=== PATIENT | female | born 1980 | race African-American/Black ===

== ENCOUNTER 2016-08-06 18:11 | Emergency (ER) | payer BC, OTHER ==
[~2016-08-06] VITALS: Ht 167.6 cm; Wt 108.6 kg
[~2016-08-06 18:11] MED LIST: IBUP-1451 PO; LEVO-366 PO; WLLSR150 PO
[2016-08-06 18:15] VITALS: Ht 167.6 cm; Wt 108.6 kg
[2016-08-06] MEDS ORDERED: HYDR-5688 PO (18:47)
[2016-08-06 18:53] VITALS: BP 130/86; PULSE 84; TEMP 36.7; O2SAT 100
--- NOTE | 2016-08-08 00:13 | EMERGENCY ROOM VISIT NOTE ---
ED Visit Note First contact with patient: 18:19 Chief Complaint: Back pain. History of Present Illness: Ms. Palmer is a 36-year-old white female who ambulates into the ED complaining of lumbar back pain. Historically patient reports she has chronic back pain that has been controlled for multiple years. Patient reports approximately 2 weeks ago she started experiencing lumbar back pain again. Initially was mild and has gradually increased in intensity. Currently she places her discomfort over the L5-S1 area with prominence on the left. She describes her pain as a sharp sensation. She rates her discomfort 8/ 10. She denies radiation of pain but does report she has paresthesias that radiate down the posterior aspect of the left leg and stops in the mid calf area. Her pain worsens with all movement of the lumbar back and palpation. She has not identified any alleviating factors related to the pain. She reports she's been using [id number] medications without relief of her discomfort. She denies fevers, chills, sweats, history of cancer, history of IV drug abuse, upper back pain, chest pain, shortness of breath, abdominal pain, nausea, vomiting, diarrhea, constipation, rectal bleeding, black/tarry stools, urinary symptoms, hematuria, vaginal bleeding, vaginal discharge, bowel and bladder dysfunction, genital paresthesias, lower extremity weakness. Review of Systems: As noted above in history of present illness. All body systems were reviewed and found to be negative as noted above. Past Medical History: As previously noted, asthma, status post tubal ligation and cholecystectomy. Current Medications: Ibuprofen. Allergies to Medications: Patient denies. Social History: Patient is currently employed; she feels safe in her home environment; she admits to tobacco use and denies alcohol use. Physical Examination: Vital Signs: Date Time Temp Pulse Resp B/P Pulse Ox O2 Delivery O2 Flow Rate FiO2 08/06/16 18:53 36.7 84 18 130/86 100 08/06/16 18:15 36.7 86 18 133/94 99 Room Air GENERAL: 36-year-old female in mild distress due to pain, nontoxic-appearing, afebrile and hemodynamically stable. NEUROLOGICAL: Awake, alert and oriented to person, place and time. Answering questions appropriately and following commands. Normal gait. Good hand eye coordination. No focal motor sensory deficits. SKIN: Warm, dry and pink. No soft tissue eruptions or trauma noted. HEENT: Atraumatic and normocephalic. BACK: No tenderness over the bony cervical and thoracic spine. No CVA tenderness. Moderate tenderness just left lateral to the L4 S1 area and into the sacroiliac joint. Do not appreciate any bony deformity, bony crepitus, step -offs, erythema or edema. Decreased range of motion in all movements at the waist due to pain. Negative straight leg raise test. THORAX: Lungs sounds are clear to auscultation and equal bilaterally with symmetrical chest wall. ABDOMEN: Flat, soft and nontender. Positive bowel sounds in all quadrants. No guarding, rigidity or organomegaly. EXTREMITIES: Moves all extremities well on command and with purpose. All distal neurovascular statuses are intact and equal bilaterally. Lower Extremities: 5/5 muscle strength in all movements of the hips, knees and ankles. 2+ dorsalis pedis and anterior tibialis pulses. Able to distinguish light sensations through all dermatomes of the leg. ED Course: Patient is assessed as noted above. Patient was educated about tonight's findings and instructed on her treatment plan; she verbalizes understanding and agreement with this plan. Clinical Impression: Acute on chronic lumbar back pain. Disposition: Patient discharged home in stable condition; prior to departure she was reassessed and subjectively reported she was feeling better and rated her discomfort 4/10. Plan: Comfort measures were discussed with the patient including rest, ice and a sliding pain medication scale of ibuprofen, acetaminophen and [place]; she was given appropriate precautions with narcotic use. Patient was encouraged to follow-up with family physician for recheck in 3-5 days and any needs for referral to back specialist. Patient was encouraged return the ED for worsening pain, fevers, leg weakness, rectal/genital paresthesias, bowel and bladder dysfunction or any new/ concerning symptoms.
[2016-12-04] MEDS ORDERED: DOXY-300 PO (13:07)
== END 2016-08-06 18:54 | disposition home or self-care (01) ==
LOC: C.EDB 18:13 → C.EDD 18:54
DX: M54.5 Low back pain (principal); J45.909 Unspecified asthma, uncomplicated

== ENCOUNTER 2016-12-03 03:15 | Inpatient (IN) | payer OTHER ==
[~2016-12-03] VITALS: Ht 170.2 cm; Wt 109.2 kg
[~2016-12-03 03:15] MED LIST changes: +HYDR-5688 PO; -LEVO-366 PO; -WLLSR150 PO
[2016-12-03] MEDS ORDERED: MoRPHine SULFATE 4 MG/ML 1 ML CARP\\VIAL IV STA (03:34)
[2016-12-03] MEDS ORDERED: ONDANSETRON INJ 2 MG/ML 2 ML VIAL IV STA (03:34)
[2016-12-03] MEDS ORDERED: SODIUM CHLORIDE 0.9% 1000ML 1,000 ML IV STA (03:34)
[2016-12-03] MEDS ORDERED: OPTIRAY 320 IV PRN (03:45)
[2016-12-03 03:48] LABS: MEAN CORPUSCULAR HEMOGLOBIN 25.5 pg (25-34); MEAN CORPUSCULAR HGB CONC 33.6 g/dl (32-36); MEAN PLATELET VOLUME 9.8 fL (7.4-10.4); PLATELET COUNT 343 K/uL (130-400); RED BLOOD COUNT 5.13 M/uL (4.2-5.4); WHITE BLOOD COUNT 25.38 K/uL (4.8-10.8)
--- NOTE | 2016-12-03 03:55 | EMERGENCY ROOM VISIT NOTE ---
History Report prepared by Jonathan: Katarina Farias Under the Supervision of: Dr. Kemar Clark D.O. First contact with patient: 03:30 Chief Complaint: BACK PAIN Stated Complaint: SEVERE BACKACHE History of Present Illness The patient is a 36 year old female who presents to the Emergency Room with complaints of an episode of back pain starting two hours ago. 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 She states that she has never had this before. She reports that she took Gabapentin and Ibuprofen with no relief. The patient complains of shortness of breath and a cough. The patient denies production of a substance with the cough, history of blood clots, history of pneumonia, leg pain, use of street drugs, and issues with her lungs in the past. The patient notes she is a smoker. She currently rates her pain as a 10/10 in severity. Source of History: patient Onset: two hours ago Position: back Symptom Intensity: 10/10 Timing: other (episode) Associated Symptoms: + cough, + SOB Note: The patient denies production of a substance with the cough and leg pain. Review of Systems See HPI for pertinent positives and negatives. A total of ten systems were reviewed and were otherwise negative. Past Medical & Surgical Medical Problems: (1) Asthma, Unspecified (2) Cholelithiasis Nos (3) Lumbago (4) Tobacco Use Disorder Surgical Problems: (1) History of cholecystectomy (2) History of tubal ligation Family History Patient reports no known family medical history. Social History Smoking Status: Current Every Day Smoker Alcohol Use: none Drug Use: none Marital Status: single Housing Status: lives with family Occupation Status: employed Current/Historical Medications Scheduled PRN Ibuprofen Tab (Motrin), 800 MG PO Q6H PRN for Pain Allergies Coded Allergies: No Known Allergies (Verified , 12/03/16) Physical Exam Vital Signs Date Time Temp Pulse Resp B/P (MAP) Pulse Ox O2 Delivery O2 Flow Rate FiO2 12/03/16 04:24 110 20 150/91 93 Room Air 12/03/16 03:33 93 Room Air 12/03/16 03:33 120 12/03/16 03:23 36.9 125 28 141/89 92 Room Air Physical Exam GENERAL: Awake, alert, well-appearing, in no distress HENT: Normocephalic, atraumatic. Oropharynx unremarkable. EYES: Normal conjunctiva. Sclera non-icteric. NECK: Supple. No nuchal rigidity. FROM. No JVD. RESPIRATORY: Clear to auscultation. CARDIAC: Tachycardic rate, normal rhythm. Extremities warm and well perfused. Pulses equal. ABDOMEN: Soft, non-distended. No tenderness to palpation. No rebound or guarding. No masses. RECTAL: Deferred. MUSCULOSKELETAL: Chest examination reveals no tenderness. Back has mild paraspinal tenderness in thoracic spine. The back is symmetrical on inspection without obvious abnormality or deformity. There is no CVA tenderness to palpation. No joint edema. LOWER EXTREMITIES: Calves are equal size bilaterally and non-tender. No edema. No discoloration. NEURO: Normal sensorium. No sensory or motor deficits noted. SKIN: No rash or jaundice noted. Medical Decision & Procedures ER Provider Diagnostic Interpretation: CHEST X-RAY: Findings: The results were interpreted by me. It shows increased pulmonary markings bilaterally. Concerned for pulmonary edema. CT CHEST With Contrast: Findings: Comparison 02/19/16 There is significant artifact on this examination. Given the degree of artifact, do not feel this exam is sufficient to exclude pulmonary embolism. No large central/saddle embolus. Bilateral opacity suspicious for infiltrate. More prominent than the previous. Radiologist: Adrien Guajardo M.D. Study ready at 04:30 and initial results transmitted at 05:09. Laboratory Results 12/03/16 03:35 Red Blood Count 5.13, Mean Corpuscular Volume 76.0, Mean Corpuscular Hemoglobin 25.5, Mean Corpuscular Hemoglobin Concent 33.6, Mean Platelet Volume 9.8, Neutrophils (%) (Auto) 89.6, Lymphocytes (%) (Auto) 3.7, Monocytes (%) (Auto) 6.0, Eosinophils (%) (Auto) 0.1, Basophils (%) (Auto) 0.1, Neutrophils # (Auto) 22.72, Lymphocytes # (Auto) 0.95, Monocytes # (Auto) 1.53, Eosinophils # (Auto) 0.03, Basophils # (Auto) 0.02 12/03/16 03:35 Test 12/03/16 03:35 12/03/16 03:41 White Blood Count 25.38 K/uL (4.8-10.8) Red Blood Count 5.13 M/uL (4.2-5.4) Hemoglobin 13.1 g/dL (12.0-16.0) Hematocrit 39.0 % (37-47) Mean Corpuscular Volume 76.0 fL (80-100) Mean Corpuscular Hemoglobin 25.5 pg (25-34) Mean Corpuscular Hemoglobin Concent 33.6 g/dl (32-36) Platelet Count 343 K/uL (130-400) Mean Platelet Volume 9.8 fL (7.4-10.4) Neutrophils (%) (Auto) 89.6 % Lymphocytes (%) (Auto) 3.7 % Monocytes (%) (Auto) 6.0 % Eosinophils (%) (Auto) 0.1 % Basophils (%) (Auto) 0.1 % Neutrophils # (Auto) 22.72 K/uL (1.4-6.5) Lymphocytes # (Auto) 0.95 K/uL (1.2-3.4) Monocytes # (Auto) 1.53 K/uL (0.11-0.59) Eosinophils # (Auto) 0.03 K/uL (0-0.5) Basophils # (Auto) 0.02 K/uL (0-0.2) RDW Standard Deviation 39.9 fL (36.4-46.3) RDW Coefficient of Variation 14.2 % (11.5-14.5) Immature Granulocyte % (Auto) 0.5 % Immature Granulocyte # (Auto) 0.13 K/uL (0.00-0.02) Anion Gap 8.0 mmol/L (3-11) Est Creatinine Clear Calc Drug Dose 127.4 ml/min Estimated GFR () 114.3 Estimated GFR (Non- 98.6 BUN/Creatinine Ratio 11.2 (10-20) Calcium Level 9.3 mg/dl (8.5-10.1) Total Bilirubin 0.9 mg/dl (0.2-1) Direct Bilirubin 0.2 mg/dl (0-0.2) Aspartate Amino Transf (AST/SGOT) 21 U/L (15-37) Alanine Aminotransferase (ALT/SGPT) 27 U/L (12-78) Alkaline Phosphatase 79 U/L (45-117) Pro-B-Type Natriuretic Peptide 79 pg/ml (0-450) Total Protein 8.1 gm/dl (6.4-8.2) Albumin 3.8 gm/dl (3.4-5.0) Bedside Troponin I < 0.030 ng/ml (0-0.045) Laboratory results reviewed by me Medications Administered Medications (Trade) Dose Ordered Sig/Shawna Route Start Time Stop Time Status Last Admin Dose Admin Morphine Sulfate (MoRPHine SULFATE INJ) 4 mg NOW STAT IV 12/03/16 03:34 12/03/16 03:37 DC 12/03/16 03:46 4 MG Ondansetron HCl (Zofran Inj) 4 mg NOW STAT IV 12/03/16 03:34 12/03/16 03:37 DC 12/03/16 03:45 4 MG Sodium Chloride 1,000 ml @ 999 mls/hr Q1H1M STAT IV 12/03/16 03:34 12/03/16 04:34 DC 12/03/16 03:45 999 MLS/HR ECG Indication: back/shoulder pain Rate (beats per minute): 126 Rhythm: sinus tachycardia Findings: no acute ischemic change, other (normal intervals, normal axis) ED Course 0331: The patient was evaluated in room A3. A complete history and physical exam was performed. 0334: Ordered NSS 1000 ml @ 999 mls/hr IV, Zofran Inj 4 mg IV, Morphine Sulfate 4 mg IV. 0512: Ordered Rocephin Inj 1 gm IV. 0515: Ordered Azithromycin 500 mg/ Dextrose 255 ml @ 125 mls/hr IV. 0522: Discussed the patient's case with Dr. Nessa Perry. The patient will be evaluated for further treatment and disposition. Medical Decision Differential diagnoses include musculoskeletal back pain, pleurisy, pulmonary embolism, pneumonia. pleurisies. Patient was given IV pain medicine patient was started on IV Rocephin and Zithromax after the patient underwent a CT for pulmonary embolism due to the fact the patient was tachycardiac hypoxic and had back pain. Patient was fine have bilateral lower lobe infiltrates on CT patient's BNP was normal sinus do not suspect congestive heart failure. I discussed the case with the patient at bedside at 520 have discussed the case with the [facility] hospitalist 5:25 AM for admission Consults Time Called: [phone] Consulting Physician: Dr. Nessa Perry Returned Call: [phone] Discussed the patient's case with Dr. Nessa Perry. The patient will be evaluated for further treatment and disposition. Impression Primary Impression: Bilateral pneumonia Scribe Attestation The scribe's documentation has been prepared under my direction and personally reviewed by me in its entirety. I confirm that the note above accurately reflects all work, treatment, procedures, and medical decision making performed by me. Departure Information Dispostion Being Evaluated By Hospitalist Referrals No Doctor, Assigned (PCP) Patient Instructions [facility]
[2016-12-03 04:08] LABS: BUN/CREATININE RATIO 11.2 (10-20); CALCIUM 9.3 mg/dl (8.5-10.1); CREATININE 0.77 mg/dl (0.60-1.20); POTASSIUM 3.4 mmol/L (3.5-5.1)
[2016-12-03 04:27] LABS: BASO % 0.1 %; BASO ABS # 0.02 K/uL (0-0.2); COMPLETE YES; EOS % 0.1 %; IG% 0.5 %; LYMPH % 3.7 %; LYMPH ABS # 0.95 K/uL (1.2-3.4); NEUT % 89.6 %
[2016-12-03] MEDS ORDERED: CEFTRIAXONE SOD INJ 1 GM ADDVIAL IV STA (05:12)
[2016-12-03] MEDS ORDERED: AZITHROMYCIN IV 500 MG in DEXTROSE 5% 250ML 250 ML IV ONE (05:15)
[2016-12-03] MEDS ORDERED: ACETAMINOPHEN 325 MG TAB PO PRN (05:45)
--- NOTE | 2016-12-03 05:56 | DIAGNOSTIC IMAGING REPORT ---
(CHEST FOR PE) ANGIO WITH CT DOSE: 502.29 mGy.cm HISTORY: Chest pain dyspnea TECHNIQUE: 02/19/2016 A dose lowering technique was utilized adhering to the principles of ALARA. COMPARISON STUDY: 02/19/2016 FINDINGS: Limited study technically due to respiratory and somatic motion.. Central pulmonary vasculature shows no major filling defect. The second third vessels are not diagnostically evaluated. Parenchymal pattern suggests developing pulmonary edema versus diffuse bilateral parenchymal infiltrative change. Respiratory distress syndrome is also a consideration. IMPRESSION: 1. Near nondiagnostic study technically due to respiratory and somatic motion. 2. No evidence for major central embolus. 3. Nondiagnostic evaluation of the peripheral pulmonary arterial structures 4. Diffuse bilateral parenchymal infiltrative change versus pulmonary edema/respiratory distress. The above report was generated using voice recognition software. It may contain grammatical, syntax or spelling errors. Electronically signed by: Haim Juárez M.D. 12/03/2016 5:55 AM Dictated Date/Time: 12/03/2016 5:49 AM
[2016-12-03] MEDS ORDERED: NRN100 PO (05:57)
[2016-12-03] MEDS ORDERED: ACETAMINOPHEN 500 MG TAB PO PRN (06:00)
[2016-12-03] MEDS ORDERED: IBUPROFEN 800 MG TAB PO PRN (06:00)
--- NOTE | 2016-12-03 06:00 | History and Physical ---
History & Physical Date & Time of Service: Dec 03, 2016 at 06:00 . Chief Complaint: Severe Backache . Primary Care Physician: Bakari Beatty D.OBob . History of Present Illness Source: patient, clinic records, hospital records 36 YO female followed by Dr. Bakari Beatty for Family Medicine. History of mild asthma and other problems as noted below. Seen in ED for pneumonia in February 2016. Treated as an outpatient with improvement. 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 [place] well yesterday. Around midnight she noted interscapular pain. Pain was sharp, but not pleuritic. It did not radiate. No fever or cough initially. No no nausea or vomiting. Tried ibuprofen and gabapentin with minimal relief. Came to ED for evaluation. Received IV morphine with relief of the pain. CTA chest negative for PE, but demonstrated bilateral infiltrates. Developed nonproductive cough and some SOB while in the ED. . Past Medical/Surgical History Chronic and Resolved Medical Problems: (1) Asthma Status: Chronic (2) Sickle cell trait Status: Chronic Surgical Problems: (2) Status post cholecystectomy Status: Chronic (3) Status post tubal ligation Status: Chronic . Social History Smoking Status: Current Every Day Smoker Alcohol Use: none Drug Use: none Marital Status: single Housing status: lives with family Occupational Status: employed Multi-Drug Resistant Organisms History of MDRO: No Allergies Coded Allergies: No Known Allergies (Verified , 12/03/16) Home Medications Scheduled PRN Gabapentin (Gabapentin), 100 MG PO TID PRN for Pain Ibuprofen Tab (Motrin), 800 MG PO Q6H PRN for Pain Review of Systems As noted above in HPI. . Physical Exam Vital Signs Date Time Temp Pulse Resp B/P (MAP) Pulse Ox O2 Delivery O2 Flow Rate FiO2 12/03/16 05:38 99 22 152/107 92 Room Air 12/03/16 04:24 110 20 150/91 93 Room Air 12/03/16 03:33 93 Room Air 12/03/16 03:33 120 12/03/16 03:23 36.9 125 28 141/89 92 Room Air General Appearance: WD/WN, no apparent distress Head: normocephalic, atraumatic Eyes: normal inspection, PERRL, EOMI, sclerae normal ENT: normal ENT inspection, hearing grossly normal, pharynx normal Neck: supple, no adenopathy, thyroid normal, trachea midline Respiratory/Chest: lungs clear, no respiratory distress, no accessory muscle use Cardiovascular: regular rate, rhythm, no edema, no gallop, no JVD, no murmur, normal peripheral pulses Abdomen/GI: normal bowel sounds, non tender, soft, no organomegaly, no pulsatile mass Extremities/Musculoskelatal: no calf tenderness, no pedal edema 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7 % Monocytes (%) (Auto) 6.0 % Eosinophils (%) (Auto) 0.1 % Basophils (%) (Auto) 0.1 % Neutrophils # (Auto) 22.72 1.4-6.5 K/uL Lymphocytes # (Auto) 0.95 1.2-3.4 K/uL Monocytes # (Auto) 1.53 0.11-0.59 K/uL Eosinophils # (Auto) 0.03 0-0.5 K/uL Basophils # (Auto) 0.02 0-0.2 K/uL RDW Standard Deviation 39.9 36.4-46.3 fL RDW Coefficient of Variation 14.2 11.5-14.5 % Immature Granulocyte % (Auto) 0.5 % Immature Granulocyte # (Auto) 0.13 0.00-0.02 K/uL Sodium Level 139 136-145 mmol/L Potassium Level 3.4 3.5-5.1 mmol/L Chloride Level 108 98-107 mmol/L Carbon Dioxide Level 23 21-32 mmol/L Anion Gap 8.0 3-11 mmol/L Blood Urea Nitrogen 9 7-18 mg/dl Creatinine 0.77 0.60-1.20 mg/dl Est Creatinine Clear Calc Drug Dose 127.4 ml/min Estimated GFR () 114.3 Estimated GFR (Non- 98.6 BUN/Creatinine Ratio 11.2 10-20 Random Glucose 112 70-99 mg/dl Calcium Level 9.3 8.5-10.1 mg/dl Total Bilirubin 0.9 0.2-1 mg/dl Direct Bilirubin 0.2 0-0.2 mg/dl Aspartate Amino Transf (AST/SGOT) 21 15-37 U/L Alanine Aminotransferase (ALT/SGPT) 27 12-78 U/L Alkaline Phosphatase 79 45-117 U/L Pro-B-Type Natriuretic Peptide 79 0-450 pg/ml Total Protein 8.1 6.4-8.2 gm/dl Albumin 3.8 3.4-5.0 gm/dl Bedside Troponin I < 0.030 0-0.045 ng/ml Microbiology Results 12/03/16 Blood Culture, Received Pending 12/03/16 Blood Culture, Received Pending Diagnostic Radiology CHEST ONE VIEW PORTABLE FINDINGS: There are low lung volumes. The heart is normal in size. Bilateral perihilar hazy airspace opacities no pleural effusions. No pneumothorax. IMPRESSION: Bilateral perihilar hazy airspace opacities. This favors an atypical pneumonia versus noncardiogenic pulmonary edema. Electronically signed by: Gideon Bloom M.D. 12/03/2016 7:04 AM Dictated Date/Time: 12/03/2016 7:03 AM (CHEST FOR PE) ANGIO WITH FINDINGS: Limited study technically due to respiratory and somatic motion.. Central pulmonary vasculature shows no major filling defect. The second third vessels are not diagnostically evaluated. Parenchymal pattern suggests developing pulmonary edema versus diffuse bilateral parenchymal infiltrative change. Respiratory distress syndrome is also a consideration. IMPRESSION: 1. Near nondiagnostic study technically due to respiratory and somatic motion. 2. No evidence for major central embolus. 3. Nondiagnostic evaluation of the peripheral pulmonary arterial structures 4. Diffuse bilateral parenchymal infiltrative change versus pulmonary edema/respiratory distress. The above report was generated using voice recognition software. It may contain grammatical, syntax or spelling errors. Electronically signed by: Haim Juárez M.D. 12/03/2016 5:55 AM Dictated Date/Time: 12/03/2016 5:49 AM . EKG EKG performed at 03:[address] at 130 / minute, no acute ST or T-wave abnormalities. . Impression Assessment and Plan BACK PAIN No apparent PE or aortic dissection per CTA chest. EKG shows ST, no acute changes. Troponin negative. BILATERAL PULMONARY INFILTRATES CT demonstrates bilateral parenchymal infiltrates vs pulmonary edema. Pro-BNP normal. WBC = 25,000. Probable pneumonia. Blood cultures obtained in ED. Started on azithromycin and ceftriaxone which will be continued. Consider other pulmonary pathology if no response to therapy. Will need f/u imaging by CT to demonstrate resolution of infiltrates. VTE PROPHYLAXIS Low-moderate risk. SQ enoxaparin. Ambulate. DISPOSITION Admit to Med-Surg Unit. Expected discharge to home. Family Medicine follow-up with Dr. Bakari Beatty. . VTE Prophylaxis VTE Risk Assessment Done? Y/N: Yes Risk Level: Moderate Given or contraindicated: Enoxaparin (Lovenox)SQ
[2016-12-03 06:13] VITALS: BP 124/74; PULSE 94; TEMP 37.4; O2SAT 92; Ht 170.2 cm; Wt 109.2 kg
[2016-12-03 06:18] LABS: PARTIAL THROMBOPLASTIN RATIO 1.1; PROTHROMBIN TIME (PATIENT) 10.3 SECONDS (9.0-12.0)
--- NOTE | 2016-12-03 07:06 | DIAGNOSTIC IMAGING REPORT ---
CHEST ONE VIEW PORTABLE HISTORY: Atypical CHEST PAIN COMPARISON: Chest 02/19/2016. FINDINGS: There are low lung volumes. The heart is normal in size. Bilateral perihilar hazy airspace opacities no pleural effusions. No pneumothorax. IMPRESSION: Bilateral perihilar hazy airspace opacities. This favors an atypical pneumonia versus noncardiogenic pulmonary edema. Electronically signed by: Gideon Bloom M.D. 12/03/2016 7:04 AM Dictated Date/Time: 12/03/2016 7:03 AM
[2016-12-03] MEDS: ENOXAPARIN 40 MG/0.4 ML SYR SQ SCH (07:46)
[2016-12-03] MEDS: GABAPENTIN 100 MG CAP PO SCH ×3 (07:46→19:45)
[2016-12-03] MEDS: KETOROLAC TROMETHAMINE 30 MG/ML VIAL IV PRN ×2 (07:47→19:44)
[2016-12-03 07:56] VITALS: BP 123/79; PULSE 91; TEMP 37.6; O2SAT 94
[2016-12-03] MEDS ORDERED: ENOXAPARIN 40 MG/0.4 ML SYR SQ SCH (08:00)
[2016-12-03] MEDS ORDERED: POTASSIUM CHLORIDE 20 MEQ TABCR PO ONE (09:00)
[2016-12-03] MEDS ORDERED: ALBUTEROL HFA 8 GM INHALER INH PRN (09:00)
[2016-12-03] MEDS ORDERED: NICOTINE 7 MG/24 HR TDSY TD ONE (09:05)
[2016-12-03 10:23] LABS: PREG INTERNAL NEGATIVE QC NEG CLEAR BACKGROUND; PREG INTERNAL POSITIVE QC POS CONTROL LINE
[2016-12-03 15:01] VITALS: BP 112/75; PULSE 71; TEMP 37; O2SAT 98
[2016-12-03] MEDS: TRAMADOL HCL 50 MG TAB PO PRN (17:38)
--- NOTE | 2016-12-03 18:29 | Progress Note ---
Medicine Progress Note Date & Time of Visit: Dec 03, 2016 at 18:11. Subjective Pt was seen and examined lying in bed with no distress Pt said that her back pain seems to improved a little she denies any URI such as cough, SOB and fever Objective Last 8 Hrs Date Time Temp Pulse Resp B/P (MAP) Pulse Ox O2 Delivery O2 Flow Rate FiO2 12/03/16 16:00 Room Air 12/03/16 15:01 37.0 71 18 112/75 (87) 98 Room Air Physical Exam: General- NO acute distress Head- atraumatic Eyes- PERRL, EOMI ENT- oropharynx clear Neck- supple, no JVD Lungs- clear to auscultation Heart- regular rhythm; no murmur Abdomen- normal bowel sounds, soft Extremities- no calf tenderness Neuro- alert, oriented x 3; PERRL, EOMI; no facial palsy Skin- warm & dry Laboratory Results: Last 24 Hours Test 12/03/16 03:35 12/03/16 03:41 12/03/16 09:40 White Blood Count 25.38 K/uL Red Blood Count 5.13 M/uL Hemoglobin 13.1 g/dL Hematocrit 39.0 % Mean Corpuscular Volume 76.0 fL Mean Corpuscular Hemoglobin 25.5 pg Mean Corpuscular Hemoglobin Concent 33.6 g/dl Platelet Count 343 K/uL Mean Platelet Volume 9.8 fL Neutrophils (%) (Auto) 89.6 % Lymphocytes (%) (Auto) 3.7 % Monocytes (%) (Auto) 6.0 % Eosinophils (%) (Auto) 0.1 % Basophils (%) (Auto) 0.1 % Neutrophils # (Auto) 22.72 K/uL Lymphocytes # (Auto) 0.95 K/uL Monocytes # (Auto) 1.53 K/uL Eosinophils # (Auto) 0.03 K/uL Basophils # (Auto) 0.02 K/uL RDW Standard Deviation 39.9 fL RDW Coefficient of Variation 14.2 % Immature Granulocyte % (Auto) 0.5 % Immature Granulocyte # (Auto) 0.13 K/uL Prothrombin Time 10.3 SECONDS Prothromb Time International Ratio 1.0 Activated Partial Thromboplast Time 27.5 SECONDS Partial Thromboplastin Ratio 1.1 Sodium Level 139 mmol/L Potassium Level 3.4 mmol/L Chloride Level 108 mmol/L Carbon Dioxide Level 23 mmol/L Anion Gap 8.0 mmol/L Blood Urea Nitrogen 9 mg/dl Creatinine 0.77 mg/dl Est Creatinine Clear Calc Drug Dose 127.4 ml/min Estimated GFR () 114.3 Estimated GFR (Non- 98.6 BUN/Creatinine Ratio 11.2 Random Glucose 112 mg/dl Calcium Level 9.3 mg/dl Total Bilirubin 0.9 mg/dl Direct Bilirubin 0.2 mg/dl Aspartate Amino Transf (AST/SGOT) 21 U/L Alanine Aminotransferase (ALT/SGPT) 27 U/L Alkaline Phosphatase 79 U/L Pro-B-Type Natriuretic Peptide 79 pg/ml Total Protein 8.1 gm/dl Albumin 3.8 gm/dl Bedside Troponin I < 0.030 ng/ml Urine Test NEG Date/Time Source Procedure Growth Status 12/03/16 05:33 Blood Blood Culture Pending Received 12/03/16 05:27 Blood Blood Culture Pending Received Assessment & Plan BACK PAIN CTA chest showed no evidence for PE. Started on tramadol prn improved BILATERAL PULMONARY INFILTRATES CT demonstrates bilateral parenchymal infiltrates vs pulmonary edema. Pro-BNP normal. WBC = 25,000. Denies any symptoms, afebrile Blood cx pending On azithromycin and ceftriaxone Will need f/u imaging by CT to demonstrate resolution of infiltrates. Clinically stable VTE PROPHYLAXIS SQ enoxaparin. Ambulate. CODE STATUS FULL CODE. Current Inpatient Medications: Current Inpatient Medications Medications (Trade) Dose Ordered Sig/Shawna Route Start Time Stop Time Status Last Admin Dose Admin Ioversol (Optiray 320) 100 ml UD PRN IV 12/03/16 03:45 12/07/16 03:44 Enoxaparin Sodium (Lovenox Inj) 40 mg QAM SQ 12/03/16 08:00 01/02/17 08:59 12/03/16 07:46 40 MG Gabapentin (Neurontin Cap) 100 mg TID PO 12/03/16 08:00 01/02/17 08:59 12/03/16 13:45 100 MG Ibuprofen (Motrin Tab) 800 mg Q6H PRN PO 12/03/16 06:00 01/02/17 05:59 Acetaminophen (Tylenol Tab) 1,000 mg Q8H PRN PO 12/03/16 06:00 01/02/17 05:59 12/03/16 09:22 1,000 MG Ketorolac Tromethamine (Toradol Inj) 30 mg Q6H PRN IV 12/03/16 06:00 12/03/16 07:47 30 MG Azithromycin (Zithromax Tab) 500 mg QAM PO 12/04/16 08:00 12/10/16 07:59 Ceftriaxone Sodium 2000 mg/ Dextrose 70 ml @ 100 mls/hr Q24H IV 12/04/16 06:00 12/10/16 05:59 Albuterol (Ventolin Hfa Inhaler) 2 puffs Q6H PRN INH 12/03/16 09:00 01/02/17 08:59 Nicotine (Nicoderm Cq 7 Mg Patch) 1 patch QAM TD 12/04/16 08:00 01/03/17 07:59 Miscellaneous (Remove Nicoderm Patch) 1 ea HS N/A 12/03/16 21:00 01/02/17 20:59 Tramadol HCl (Ultram Tab) 50 mg Q6H PRN PO 12/03/16 15:00 01/02/17 14:59 12/03/16 17:38 50 MG
[2016-12-03] MEDS: NICOTINE 7 MG/24 HR TDSY TD SCH (18:31)
[2016-12-04 00:03] VITALS: BP 107/71; PULSE 72; TEMP 37.2; O2SAT 96
[2016-12-04] MEDS: TRAMADOL HCL 50 MG TAB PO PRN (03:00)
[2016-12-04] MEDS: KETOROLAC TROMETHAMINE 30 MG/ML VIAL IV PRN (03:38)
[2016-12-04] MEDS ORDERED: CEFTRIAXONE SOD INJ 2,000 MG in DEXTROSE 5% 50ML 50 ML IV SCH (06:00)
[2016-12-04] MEDS: GABAPENTIN 100 MG CAP PO SCH ×2 (07:51→14:00)
[2016-12-04] MEDS: ENOXAPARIN 40 MG/0.4 ML SYR SQ SCH (07:51)
[2016-12-04] MEDS ORDERED: AZITHROMYCIN 250 MG TAB PO SCH (08:00)
[2016-12-04 08:08] LABS: HEMATOCRIT 34.4 % (37-47); MEAN CELL VOLUME 75.8 fL (80-100); MEAN CORPUSCULAR HEMOGLOBIN 24.7 pg (25-34); MEAN CORPUSCULAR HGB CONC 32.6 g/dl (32-36); MEAN PLATELET VOLUME 9.9 fL (7.4-10.4); PLATELET COUNT 295 K/uL (130-400); RED BLOOD COUNT 4.54 M/uL (4.2-5.4)
[2016-12-04 08:09] VITALS: BP 133/82; PULSE 67; TEMP 37.2; O2SAT 97
[2016-12-04] MEDS: NICOTINE 7 MG/24 HR TDSY TD SCH (08:36)
[2016-12-04 08:49] LABS: BUN/CREATININE RATIO 12.3 (10-20); CALCIUM 8.5 mg/dl (8.5-10.1); CREATININE 0.77 mg/dl (0.60-1.20); POTASSIUM 3.3 mmol/L (3.5-5.1)
[2016-12-04] MEDS ORDERED: POTASSIUM CHLORIDE 20 MEQ TABCR PO ONE (12:30)
--- NOTE | 2016-12-04 12:52 | Progress Note ---
Medicine Progress Note Date & Time of Visit: Dec 04, 2016 at 12:39. Subjective Pt was seen and examined Lying in bed comfortable with no distress watching TV Pt said that she feels fine She is very anxious to go home She said that she is not having any pain Denies any chest pain, palpitation, dizziness, SOB, cough Objective Last 8 Hrs Date Time Temp Pulse Resp B/P (MAP) Pulse Ox O2 Delivery O2 Flow Rate FiO2 12/04/16 08:09 37.2 67 18 133/82 (99) 97 Room Air 12/04/16 08:00 Room Air Physical Exam: General- NO acute distress Head- atraumatic Eyes- PERRL, EOMI ENT- oropharynx clear Neck- supple, no JVD Lungs- clear to auscultation Heart- regular rhythm; no murmur Abdomen- normal bowel sounds, soft Extremities- no calf tenderness Neuro- alert, oriented x 3; PERRL, EOMI; no facial palsy Skin- warm & dry Laboratory Results: Last 24 Hours Test 12/04/16 07:35 White Blood Count 16.00 K/uL Red Blood Count 4.54 M/uL Hemoglobin 11.2 g/dL Hematocrit 34.4 % Mean Corpuscular Volume 75.8 fL Mean Corpuscular Hemoglobin 24.7 pg Mean Corpuscular Hemoglobin Concent 32.6 g/dl RDW Standard Deviation 40.9 fL RDW Coefficient of Variation 14.6 % Platelet Count 295 K/uL Mean Platelet Volume 9.9 fL Sodium Level 138 mmol/L Potassium Level 3.3 mmol/L Chloride Level 107 mmol/L Carbon Dioxide Level 24 mmol/L Anion Gap 7.0 mmol/L Blood Urea Nitrogen 10 mg/dl Creatinine 0.77 mg/dl Est Creatinine Clear Calc Drug Dose 127.4 ml/min Estimated GFR () 114.3 Estimated GFR (Non- 98.6 BUN/Creatinine Ratio 12.3 Random Glucose 77 mg/dl Calcium Level 8.5 mg/dl Assessment & Plan BACK PAIN CTA chest showed no evidence for PE. on tramadol prn resolved BILATERAL PULMONARY INFILTRATES CT demonstrates bilateral parenchymal infiltrates vs pulmonary edema. Pro-BNP normal. WBC = 25,000. Denies any symptoms, afebrile Blood cx pending On azithromycin and ceftriaxone will discharge on PO doxycline Will need f/u imaging by CT to demonstrate resolution of infiltrates. Clinically stable VTE PROPHYLAXIS SQ enoxaparin. Ambulate. CODE STATUS FULL CODE. Current Inpatient Medications: Current Inpatient Medications Medications (Trade) Dose Ordered Sig/Shawna Route Start Time Stop Time Status Last Admin Dose Admin Ioversol (Optiray 320) 100 ml UD PRN IV 12/03/16 03:45 12/07/16 03:44 Enoxaparin Sodium (Lovenox Inj) 40 mg QAM SQ 12/03/16 08:00 01/02/17 08:59 12/03/16 07:46 40 MG Gabapentin (Neurontin Cap) 100 mg TID PO 12/03/16 08:00 01/02/17 08:59 12/04/16 07:51 100 MG Ibuprofen (Motrin Tab) 800 mg Q6H PRN PO 12/03/16 06:00 01/02/17 05:59 Acetaminophen (Tylenol Tab) 1,000 mg Q8H PRN PO 12/03/16 06:00 01/02/17 05:59 12/03/16 09:22 1,000 MG Ketorolac Tromethamine (Toradol Inj) 30 mg Q6H PRN IV 12/03/16 06:00 12/04/16 03:38 30 MG Azithromycin (Zithromax Tab) 500 mg QAM PO 12/04/16 08:00 12/10/16 07:59 12/04/16 07:51 500 MG Ceftriaxone Sodium 2000 mg/ Dextrose 70 ml @ 100 mls/hr Q24H IV 12/04/16 06:00 12/10/16 05:59 12/04/16 06:14 100 MLS/HR Albuterol (Ventolin Hfa Inhaler) 2 puffs Q6H PRN INH 12/03/16 09:00 01/02/17 08:59 12/04/16 03:49 2 PUFFS Nicotine (Nicoderm Cq 7 Mg Patch) 1 patch QAM TD 12/04/16 08:00 01/03/17 07:59 12/04/16 08:36 1 PATCH Miscellaneous (Remove Nicoderm Patch) 1 ea HS N/A 12/03/16 21:00 01/02/17 20:59 12/03/16 19:48 1 EA Tramadol HCl (Ultram Tab) 50 mg Q6H PRN PO 12/03/16 15:00 01/02/17 14:59 12/04/16 03:00 50 MG
[2016-12-04] MEDS ORDERED: DOXY-300 PO (13:07)
--- NOTE | 2016-12-04 13:18 | Discharge Instructions ---
Discharge Instructions Date of Service Dec 04, 2016. Admission Reason for Admission: Bilateral Pneumonia Discharge Discharge Diagnosis / Problem: B/L pneumonia Discharge Goals Goal(s): Decrease discomfort, Improve function, Improve disease control Activity Recommendations Activity Limitations: resume your previous activity . Instructions / Follow-Up Instructions / Follow-Up Follow up with your primary care provider Dr. Beatty on 12/10 @ 2:[address] chest in a few weeks for follow up Complete the course of the antibiotic Increase potassium intake in diet (such as banana, yogurt,,,) We Will contact you if your blood work grows any bacteria Current Hospital Diet Patient's current hospital diet: Regular Diet Discharge Diet Recommended Diet: Regular Diet Pending Studies Studies pending at discharge: yes List of pending studies: blood cx Medical Emergencies . Who to Call and When: Medical Emergencies: If at any time you feel your situation is an emergency, please call 911 immediately. . Non-Emergent Contact Non-Emergency issues call your: Primary Care Provider Call Non-Emergent contact if: you have a fever, your pain is worsening, you have any medication questions . . "Provider Documentation" section prepared by Genet Tran. . VTE Core Measure Inpt VTE Proph given/why not?: Enoxaparin (Lovenox)SQ
[2016-12-04 13:20] VITALS: BP 133/82; PULSE 67; TEMP 37.2; O2SAT 97
[2016-12-04] MEDS ORDERED: DOXYCYCLINE HYCLATE 100 MG CAP PO SCH (14:00)
[2016-12-05] MEDS ORDERED: DOXYCYCLINE HYCLATE 100 MG CAP PO SCH (08:00)
--- NOTE | 2016-12-06 11:05 | Discharge Summary ---
Discharge Summary Date of Service Dec 06, 2016. Discharge Summary Admission Date: Dec 03, 2016 at 05:35 Discharge Date: Dec 04, 2016 Discharge Disposition: Home Principal Diagnosis: B/L pneumonia Secondary Diagnoses/Problems: Back Pain Procedures: [~ rep ct add3]] (CHEST FOR PE) ANGIO WITH CT DOSE: 502.29 mGy.cm HISTORY: Chest pain dyspnea TECHNIQUE: 02/19/2016 A dose lowering technique was utilized adhering to the principles of ALARA. COMPARISON STUDY: 02/19/2016 FINDINGS: Limited study technically due to respiratory and somatic motion.. Central pulmonary vasculature shows no major filling defect. The second third vessels are not diagnostically evaluated. Parenchymal pattern suggests developing pulmonary edema versus diffuse bilateral parenchymal infiltrative change. Respiratory distress syndrome is also a consideration. IMPRESSION: 1. Near nondiagnostic study technically due to respiratory and somatic motion. 2. No evidence for major central embolus. 3. Nondiagnostic evaluation of the peripheral pulmonary arterial structures 4. Diffuse bilateral parenchymal infiltrative change versus pulmonary edema/respiratory distress. The above report was generated using voice recognition software. It may contain grammatical, syntax or spelling errors. Electronically signed by: Haim Juárez M.D. 12/03/2016 5:55 AM Dictated Date/Time: 12/03/2016 5:49 AM CHEST ONE VIEW PORTABLE HISTORY: Atypical CHEST PAIN COMPARISON: Chest 02/19/2016. FINDINGS: There are low lung volumes. The heart is normal in size. Bilateral perihilar hazy airspace opacities no pleural effusions. No pneumothorax. IMPRESSION: Bilateral perihilar hazy airspace opacities. This favors an atypical pneumonia versus noncardiogenic pulmonary edema. Electronically signed by: Gideon Bloom M.D. 12/03/2016 7:04 AM Dictated Date/Time: 12/03/2016 7:03 AM Medication Reconciliation New Medications: Doxycycline (Monohydrate) (Doxycycline) 100 Mg Cap 1 TAB PO BID for 5 Days Continued Medications: Gabapentin (Gabapentin) 100 Mg Cap 100 MG PO TID PRN for Pain, CAP Ibuprofen Tab (Motrin) 800 Mg Tab 800 MG PO Q6H PRN for Pain, TAB Admission Information HPI (per Admitting provider): 36 YO female followed by Dr. Bakari Beatty for Family Medicine. History of mild asthma and other problems as noted below. Seen in ED for pneumonia in February 2016. Treated as an outpatient with improvement. 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 [place] well yesterday. Around midnight she noted interscapular pain. Pain was sharp, but not pleuritic. It did not radiate. No fever or cough initially. No no nausea or vomiting. Tried ibuprofen and gabapentin with minimal relief. Came to ED for evaluation. Received IV morphine with relief of the pain. CTA chest negative for PE, but demonstrated bilateral infiltrates. Developed nonproductive cough and some SOB while in the ED. . Physical Exam (per Admitting): General Appearance: WD/WN, no apparent distress Head: normocephalic, atraumatic Eyes: normal inspection, PERRL, EOMI, sclerae normal ENT: normal ENT inspection, hearing grossly normal, pharynx normal Neck: supple, no adenopathy, thyroid normal, trachea midline Respiratory/Chest: lungs clear, no respiratory distress, no accessory muscle use Cardiovascular: regular rate, rhythm, no edema, no gallop, no JVD, no murmur , normal peripheral pulses Abdomen/GI: normal bowel sounds, non tender, soft, no organomegaly, no pulsatile mass Extremities/Musculoskelatal: no calf tenderness, no pedal edema 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 on tramadol prn resolved BILATERAL PULMONARY INFILTRATES CT demonstrates bilateral parenchymal infiltrates vs pulmonary edema. Pro-BNP normal. WBC = 25,000. Denies any symptoms, afebrile Blood cx pending On azithromycin and ceftriaxone will discharge on PO doxycline Will need f/u imaging by CT to demonstrate resolution of infiltrates. Clinically stable VTE PROPHYLAXIS SQ enoxaparin. Ambulate. CODE STATUS FULL CODE. Total time spent on discharge = 35 minutes This includes examination of the patient, discharge planning, medication reconciliation, and communication with other providers. Discharge Instructions Discharge Instructions Date of Service Dec 04, 2016. Admission Reason for Admission: Bilateral Pneumonia Discharge Discharge Diagnosis / Problem: B/L pneumonia Discharge Goals Goal(s): Decrease discomfort, Improve function, Improve disease control Activity Recommendations Activity Limitations: resume your previous activity . Instructions / Follow-Up Instructions / Follow-Up Follow up with your primary care provider Dr. Beatty on 12/10 @ 2:[address] chest in a few weeks for follow up Complete the course of the antibiotic Increase potassium intake in diet (such as banana, yogurt,,,) We Will contact you if your blood work grows any bacteria Current Hospital Diet Patient's current hospital diet: Regular Diet Discharge Diet Recommended Diet: Regular Diet Pending Studies Studies pending at discharge: yes List of pending studies: blood cx Medical Emergencies . Who to Call and When: Medical Emergencies: If at any time you feel your situation is an emergency, please call 911 immediately. . Non-Emergent Contact Non-Emergency issues call your: Primary Care Provider Call Non-Emergent contact if: you have a fever, your pain is worsening, you have any medication questions . . "Provider Documentation" section prepared by [employer]et Tran. . VTE Core Measure Inpt VTE Proph given/why not?: Enoxaparin (Lovenox)SQ Additional Copies To Bakari Beatty, D.O.
== END 2016-12-04 14:45 | disposition home or self-care (01) | DRG 195 ==
LOC: C.EDB 03:16 → C.4E 05:35 → ENRESERV 05:46
PROVIDERS: ADMIT Hospitalist; ATTEND Internal Medicine
DX: J18.9 Pneumonia, unspecified organism (principal); M54.9 Dorsalgia, unspecified; R91.8 Other nonspecific abnormal finding of lung field; J45.909 Unspecified asthma, uncomplicated; F17.200 Nicotine dependence, unspecified, uncomplicated

== ENCOUNTER 2017-01-14 20:47 | Emergency (ER) | payer OTHER ==
[~2017-01-14] VITALS: Ht 167.6 cm; Wt 106.9 kg
[~2017-01-14 20:47] MED LIST changes: +DOXY-300 PO; -HYDR-5688 PO; +NRN100 PO
[2017-01-14 21:14] VITALS: TEMP 36.6; Ht 167.6 cm; Wt 106.9 kg
[2017-01-14] MEDS ORDERED: OXYCODONE HCL IR 5 MG TAB (IMMEDIATE RELEASE) PO STA (21:30)
[2017-01-14] MEDS ORDERED: ONDANSETRON 4MG OD TAB PO STA (21:30)
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
--- NOTE | 2017-01-14 22:17 | DIAGNOSTIC IMAGING REPORT ---
CT OF THE HEAD WITHOUT CONTRAST CLINICAL HISTORY: Left eye trauma. COMPARISON STUDY: No previous studies for comparison. TECHNIQUE: Helical axial images of the head were obtained without IV contrast. Automated exposure control was utilized for the study. A dose lowering technique was utilized adhering to the principles of ALARA. FINDINGS: No acute intracranial hemorrhage, midline shift or mass effect is present. Ventricular system is normal. Basilar cisterns are patent. There are no extra-axial collections. Michel-white differentiation is maintained. There is no calvarial fracture. Left facial trauma is noted with extensive left periorbital contusion with soft tissue gas. Fractures of the left orbital floor and left lamina papyracea are better depicted on the maxillofacial CT. Left globe is intact. There is a small amount of retrobulbar hemorrhage. There is also a small amount of orbital gas and gas within the left infratemporal fossa. IMPRESSION: 1. No acute intracranial findings. 2. No calvarial fracture. 3. Extensive left periorbital contusion with soft tissue gas and small amount of retrobulbar hemorrhage. Left globe intact. Fractures of the left lamina papyracea and left orbital floor which are better depicted on the maxillofacial CT. Please see that report for further description. Electronically signed by: Nikolay Laureano M.D. 01/14/2017 10:16 PM Dictated Date/Time: 01/14/2017 10:10 PM
--- NOTE | 2017-01-14 22:23 | DIAGNOSTIC IMAGING REPORT ---
MAXILLOFACIAL CT WITHOUT CONTRAST CLINICAL HISTORY: Left eye trauma. COMPARISON STUDY: Maxillofacial CT February 18, 2009 TECHNIQUE: A maxillofacial CT was performed without IV contrast. Coronal and sagittal reformats were viewed. A dose lowering technique was utilized adhering to the principles of ALARA. FINDINGS: Extensive left periorbital contusion is noted with soft tissue gas. The left globe is intact. There is a small amount of left orbital gas with a small amount of left retrobulbar hemorrhage. There is a small amount of gas with the left infratemporal fossa. Note is made of a moderately displaced, comminuted fracture of the left lamina papyracea as well as a mildly displaced comminuted fracture of the left orbital floor. Hemorrhage is noted within the left ethmoid and maxillary sinuses. No additional facial fractures are identified. IMPRESSION: Extensive left periorbital contusion with small amount of left retrobulbar hemorrhage and gas. Left globe intact. Comminuted, moderately displaced fracture of the left lamina papyracea and mildly displaced fracture of the left orbital floor. Hemorrhage within the left maxillary and ethmoid sinuses. Electronically signed by: Nikolay Laureano M.D. 01/14/2017 10:22 PM Dictated Date/Time: 01/14/2017 10:16 PM
[2017-01-14] MEDS ORDERED: PROPARACAINE HCL 0.5% OP SOLN 15 ML BTL OP STA (22:44)
[2017-01-14] MEDS ORDERED: CEPHALEXIN MONOHYDRATE 250 MG CAP PO ONE (22:45)
[2017-01-14] MEDS ORDERED: CEPHALEXIN 500MG HOME PACK 1 EA BTL PO ONE (22:45)
[2017-01-14] MEDS ORDERED: OXYC1TAB3 PO (23:17)
[2017-01-14] MEDS ORDERED: CEPH500C2 PO (23:17)
[2017-01-14] MEDS ORDERED: OXYCODONE IR HOME PACK PO ONE (23:30)
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
[2017-01-15 00:03] VITALS: BP 134/84; PULSE 74; O2SAT 100
== END 2017-01-15 00:04 | disposition home or self-care (01) ==
LOC: C.EDB 20:48
DX: S02.19XA Other fracture of base of skull, initial encounter for closed fracture (principal); S00.83XA Contusion of other part of head, initial encounter; W22.8XXA Striking against or struck by other objects, initial encounter; Y93.64 Activity, baseball; J45.909 Unspecified asthma, uncomplicated; F17.200 Nicotine dependence, unspecified, uncomplicated; Z98.51 Tubal ligation status; Z90.49 Acquired absence of other specified parts of digestive tract

== ENCOUNTER 2017-02-10 19:35 | Emergency (ER) | payer OTHER ==
[~2017-02-10] VITALS: Ht 170.2 cm; Wt 107.0 kg
[~2017-02-10 19:35] MED LIST changes: +CEPH500C2 PO; -DOXY-300 PO; -IBUP-1451 PO; -NRN100 PO; +OXYC1TAB3 PO
[2017-02-10 19:50] VITALS: TEMP 36.8; Ht 170.2 cm; Wt 107.0 kg
[2017-02-10] MEDS ORDERED: LIDOCAINE/EPINEPHRINE 1% 20 ML VIAL INFIL ONE (20:30)
--- NOTE | 2017-02-10 21:32 | EMERGENCY ROOM VISIT NOTE ---
ED Visit Note First contact with patient: 20:21 CHIEF COMPLAINT: Infection of the right axilla HISTORY OF PRESENT ILLNESS: This 36-year-old female patient presents to the emergency department by private vehicle complaining of abscess in her right armpit that started 2 days ago. The spot seemed to start like an ingrown hair, the area has now become red, warm, and very painful. The patient denies fever, chills, nausea, or loss of appetite. Movement of the right arm is somewhat decreased because of the pain. The patient's tetanus shot is up to date. She reports a history of a similar abscess in her left armpit in the past. REVIEW OF SYSTEMS: A review of systems was performed with positives and pertinent negatives listed in the history of present illness. All other systems were reviewed and are negative. ALLERGIES: No known allergies MEDICATIONS: No medications PMH: No significant past medical or surgical history SOCIAL HISTORY: Lives at home. She is a current every day smoker. PHYSICAL EXAM: Vital Signs: Reviewed Nurse's notes, afebrile, vital signs stable. GENERAL: Pleasant and cooperative, in no acute distress, is non toxic in appearance, well-developed, well-nourished. SKIN: The right axilla is red, warm, very tender, and swollen. There is no lymphangitic streaking. There is no discharge. There is central fluctuance with surrounding induration, which measures approximately 3 cm in diameter. There is no pointing or drainage. There is a zone of inflammation around it but no lymphangitis. HEART: Regular rate and rhythm without murmur, gallop, or rub. LUNGS: Clear to auscultation bilaterally without wheezes, rales, or rhonchi. NEURO: Alert and oriented to person, place, and time. Normal sensation to light and sharp touch. Capillary reflex less than 2 seconds. Peripheral pulses 2 + bilaterally. EMERGENCY DEPARTMENT COURSE: I examined the patient. Exam findings consistent with a small abscess, fluctuant at the center. Verbal consent was obtained for the procedure. Using saline and Betadine cleansing, lidocaine anesthesia using 1% lidocaine with epinephrine, and sterile technique, the abscess cavity was incised with a number 11 scalpel blade. Purulent material drained and more was expressed. A wound culture was collected and sent to the lab, as this is a recurrent abscess for the patient. The abscess cavity was irrigated with saline and Betadine. Bacitracin soaked iodoform guaze drain inserted and the area was covered with a sterile bandage. Patient tolerated the procedure well and there were no complications. Patient was instructed on close follow-up, she verbalized understanding. The patient was discharged home in stable condition and ambulatory. Problem List Medical Problems: (1) Asthma Status: Chronic (2) Sickle cell trait Status: Chronic Surgical Problems: (1) History of cholecystectomy Status: Resolved (2) Status post cholecystectomy Status: Chronic (3) Status post tubal ligation Status: Chronic Current/Historical Medications No Active Prescriptions or Reported Meds Allergies Coded Allergies: No Known Allergies (Verified , 02/10/17) Vital Signs Date Time Temp Pulse Resp B/P (MAP) Pulse Ox O2 Delivery O2 Flow Rate FiO2 02/10/17 21:35 81 18 126/83 99 Room Air 02/10/17 19:50 36.8 75 20 118/76 97 Room Air Departure Information Impression Primary Impression: Abscess of right axilla Dispostion Home / Self-Care Condition GOOD Prescriptions No Active Prescriptions or Reported Meds Referrals Bakari Beatty, D.OBob (PCP) Patient Instructions ED Abscess [facility] Additional Instructions You were seen in the Emergency Department for Incision and Drainage of your right axillary abscess. You will NEED to follow up with your PCP or return to the Emergency Department to have the packing removed/changed in 48 hours. This packing is NOT dissolvable and WILL need to be removed by a health care provider. Try to leave the packing in place until you have follow-up in 2 days. Proper wound care is essential for adequate wound healing and infection prevention. You can shower and clean the wound with soap and water. Do not scour over the wound. Pat dry with a towel. Do not submerse the wound (i.e. bathe or dish wash) until the sutures have been removed. You can use an antibiotic ointment with a dressing over the wound for the next 3-4 days. After this time you may leave the wound dry and open to the air. If crust develops over the wound you can use a Q-tip to apply a 1:1 peroxide:water solution to clean the wound. Look for signs of infection of the wound including: increased pain, swelling, foul discharge, streaking, or increased temperature. If any of these are noticed you should return to the Emergency Department for further assessment and treatment. As with any laceration you may have received nerve damage to the surrounding tissues. This damage may or may not be permanent. For pain control, you can use the following [id number] medicines (if >12 yo): - Extra strength (500mg/tab) Tylenol (acetaminophen) 1-2 tabs every 6-8 hours as needed. Do not exceed 6 tablets in a 24 hour period. Avoid taking more than 3 grams (3000 mg) of Tylenol per day. This includes any other sources of acetaminophen you may take on a regular basis. - Regular strength (200 mg/tab) Advil (ibuprofen) 2-3 tabs every 6-8 hours as needed. Do not exceed a dose of 2400 mg per day. You may also apply warm compresses to the area for comfort. Return to the emergency department if your symptoms worsen despite treatment course outlined above. Work Instructions Return To Work: 1 day
[2017-02-10 21:35] VITALS: BP 126/83; PULSE 81; O2SAT 99
--- NOTE | 2017-02-12 18:39 | Pharmacy Progress Note ---
ED Pharmacist Progress Note Date of Service: Feb 12, 2017. Patient with wound culture growing coag neg staph. Patient had I&D and was not discharged on antibiotics. Discussed with Dr. Siddiqui, if patient is feeling better no need for antibiotics, but if patient is feeling worse then can call in a script for bactrim 1 DS tab BID X 7 days. Called patient and left voicemail to return call.
== END 2017-02-10 21:36 | disposition home or self-care (01) ==
LOC: C.EDB 19:37 → C.EDD 21:36
DX: L02.411 Cutaneous abscess of right axilla (principal); D57.3 Sickle-cell trait; J45.909 Unspecified asthma, uncomplicated; F17.210 Nicotine dependence, cigarettes, uncomplicated

== ENCOUNTER 2017-03-18 17:20 | Emergency (ER) | payer OTHER ==
[~2017-03-18] VITALS: Ht 170.2 cm; Wt 104.0 kg
[2017-03-18 17:29] VITALS: TEMP 36.7; Ht 170.2 cm; Wt 104.0 kg
[2017-03-18] MEDS ORDERED: PENI-82 PO (17:46)
[2017-03-18] MEDS ORDERED: HYDR-5688 PO (17:46)
--- NOTE | 2017-03-18 17:47 | EMERGENCY ROOM VISIT NOTE ---
ED Visit Note First contact with patient: 17:36 CHIEF COMPLAINT: Toothache x2 days HISTORY OF PRESENT ILLNESS: This 36 year old female patient presented to the emergency department, ambulatory, with a progressive toothache for past 2 days. The patient believes it is coming from her right lower molar. She states symptoms began 2 days ago. She has been unable to eat or sleep due to the pain. She states the pain is starting to radiate up her face. She has been taking 800 mg of Motrin every 4 hours as well as 200 mg of Tylenol intermittently. She states yesterday she had a temperature of 99F. She denies any drainage or foul taste in the mouth. She did have a previous abscessed tooth last year on the opposite side, which was pulled. The pain is now steady and severe and radiates to the face. The patient does have a dentist appointment set up on Friday. They rate their pain a 10/10 and the ibuprofen and Tylenol they have been taking has not relieved the pain. Denies facial swelling or fever. The patient denies any discharge from the mouth. REVIEW OF SYSTEMS: A 6 system review of systems was completed with positives and pertinent negatives listed in the HPI. ALLERGIES: None MEDICATIONS: None PMH: None SOCIAL HISTORY: The patient lives locally with family. She denies drug, alcohol use. The patient admits to smoking cigarettes, and states she smokes one pack every 3 days. PHYSICAL EXAM: Vitals are noted on the nurse's note and reviewed by myself. Vital signs stable. Temperature 36.7C orally. GENERAL: This is a 36-year-old black female, in no acute distress, nondiaphoretic, well-developed well- nourished. Mouth: The #30 tooth is very carious with a metal filling, and the gum is swollen and tender around it, without any discharge or signs of an abscess. The remainder of the pharynx and tonsils are without erythema, edema, or exudate. The airway is patent. There is no facial swelling, cervical or submandibular lymphadenopathy. The patient appears uncomfortable and in pain. The patient has overall poor dental hygiene. EARS: External auditory canals clear, tympanic membranes pearly garcia without erythema or effusion bilaterally. ED COURSE: The patient was seen and evaluated as above. I did advise the patient that it is imperative she quit smoking, as this is probably worsening her dental infections. I discussed with her proper management including antibiotics and pain management. The patient was in agreement with the assessment and plan. Discharge instructions were reviewed, and the patient was discharged home in good condition. I attest that I have personally reviewed the patient's current medication list. Patient was found to have normal blood pressure on screening and does not require follow-up. DIFFERENTIAL DIAGNOSIS: Dental caries, dental abscess, odontalgia, cavity, dental fracture, cellulitis, malignancy, and others DIAGNOSIS: Odontalgia Problem List Medical Problems: (1) Asthma Status: Chronic (2) Sickle cell trait Status: Chronic Surgical Problems: (1) History of cholecystectomy Status: Resolved (2) Status post cholecystectomy Status: Chronic (3) Status post tubal ligation Status: Chronic Current/Historical Medications Scheduled Penicillin V Potassium (Veetids), 500 MG PO QID Scheduled PRN Hydrocodone/Acetaminophen 5MG/325MG ([place] 5MG/325MG), 1 TABLET PO Q6H PRN for Pain Allergies Coded Allergies: No Known Allergies (Verified , 02/10/17) Vital Signs Date Time Temp Pulse Resp B/P (MAP) Pulse Ox O2 Delivery O2 Flow Rate FiO2 03/18/17 17:55 82 16 131/84 99 03/18/17 17:29 36.7 82 16 131/84 99 Room Air Departure Information Impression Primary Impression: Odontalgia Dispostion Home / Self-Care Condition GOOD Prescriptions Hydrocodone/Acetaminophen 5MG/325MG ([place] 5MG/325MG) Tab 1 TABLET PO Q6H Y for Pain, #4 TAB For Initial Treatment Prov: Divina Mauricio PA-C 03/18/17 Penicillin V Potassium (Veetids) 500 Mg Tab 500 MG PO QID for 10 Days, #40 TAB Prov: Divina Mauricio PA-C 03/18/17 Referrals No Doctor, Assigned (PCP) Patient Instructions ED Abscess Dental, [facility] Additional Instructions You have been treated in the Emergency Department for Dental Pain. You have been prescribed [place] to be used for pain control. This is a narcotic medication. You cannot drive or consume alcohol while on this medicine. This medicine should only be used for pain that cannot be controlled with over-the- counter pain medicines. You were prescribed Pen-Vee K to be taken 4 times daily. This is an antibiotic. All antibiotics have the potential to cause diarrhea. Stop this medication and contact a medical provider if you were to develop any significant adverse side effects including: wheezing, shortness of breath, passing out, vomiting, or a diffuse rash. Always take antibiotics as directed and COMPLETE the ENTIRE course regardless of the improvement of your symptoms. For pain control, you can use the following [id number] medicines (if >12 yo): Ibuprofen(Motrin, Advil) may be used for fever or pain. Use 600mg every six hours as needed. Take with food. Avoid using more than 2400mg in a 24 hour period. Do not use 2400mg per day for more than three consecutive days without physician direction. Prolonged inappropriate use can lead to stomach upset or ulcers. (AND/OR) Acetaminophen(Tylenol) may be used for fever or pain. Use 1000mg every six hours as needed. Avoid using more than 3000mg in a 24 hour period. Refrain from smoking cigarettes or using chewing tobacco until you have been evaluated by your dentist. Keeping beverages lukewarm and consuming soft foods can decrease your pain. Warm compresses over the affected area may offer some relief. You MUST seek evaluation of your dental pain by a dentist following your visit to the Emergency Department. The Emergency Department is not capable of treating dental issues long-term. You should call your dentist as soon as possible to make an appointment for evaluation of your dental pain. Return to the emergency department if you develop the following symptoms despite treatment course outlined above: fever, intractable pain, increased redness, swelling, or purulent discharge.
[2017-03-18 17:55] VITALS: BP 131/84; PULSE 82; O2SAT 99
== END 2017-03-18 17:56 | disposition home or self-care (01) ==
LOC: C.EDB 17:21 → C.EDD 17:56
DX: K08.89 Other specified disorders of teeth and supporting structures (principal); J45.909 Unspecified asthma, uncomplicated; D57.3 Sickle-cell trait; F17.210 Nicotine dependence, cigarettes, uncomplicated; Z90.49 Acquired absence of other specified parts of digestive tract; Z98.51 Tubal ligation status

== ENCOUNTER 2017-09-23 11:46 | Emergency (ER) | payer OTHER ==
[~2017-09-23] VITALS: Ht 172.7 cm; Wt 111.5 kg
[2017-09-23 11:51] VITALS: TEMP 36.4; Ht 172.7 cm; Wt 111.5 kg
--- NOTE | 2017-09-23 12:24 | EMERGENCY ROOM VISIT NOTE ---
History First contact with patient: 11:54 Chief Complaint: BACK PAIN Stated Complaint: BACK PAIN History of Present Illness The patient is a 37 year old female who presents to the Emergency Room via private vehicle with complaints of "back pain". The patient states that yesterday while at home she was carrying groceries into her house and while walking across the grass it was wet causing her to slip falling backwards onto her low back. She notes pain since that time. Last night she tried a heating pad, Motrin, ibuprofen and Flexeril with minimal relief. She woke up today and took 800 mg of ibuprofen still with minimal relief. She rates the pain as a 10/ 10. It does not radiate down the legs. It is sharp in nature. She also points to the paraspinous musculature of the lumbar spine as the additional location of pain. She denies any chest pain, shortness of breath, abdominal pain. She denies chance of . Review of Systems A complete 6-point Review of Systems was discussed with the patient, with pertinent positives and negatives listed in the History of Present Illness. All remaining Review of Systems questions can be considered negative unless otherwise specified. Past Medical/Surgical History Medical Problems: (1) Asthma (2) Asthma, Unspecified (3) Cholelithiasis Nos (4) Lumbago (5) Sickle cell trait (6) Tobacco Use Disorder Surgical Problems: (1) History of cholecystectomy (2) Status post cholecystectomy (3) Status post tubal ligation Family History Arthritis MOTHER Social History Smoking Status: Current Every Day Smoker Alcohol Use: none Drug Use: none Marital Status: single Housing Status: lives with family Occupation Status: employed Current/Historical Medications Scheduled PRN Hydrocodone/Acetaminophen 5MG/325MG ([place] 5MG/325MG), 1-2 TABLET PO Q6 PRN for Pain Physical Exam Vital Signs Date Time Temp Pulse Resp B/P (MAP) Pulse Ox O2 Delivery O2 Flow Rate FiO2 09/23/17 14:00 78 18 124/99 99 Room Air 09/23/17 11:51 36.4 98 20 134/88 100 Room Air Physical Exam VITAL SIGNS - Vital signs and nursing notes were reviewed. Stable. GENERAL -37-year-old female appearing her stated age who is in no acute distress. Communicates well with provider and answers questions appropriately. SKIN - Without rashes. No meningeal or petechial rash. There is no disruption of the skin noted to the back. It is unremarkable. HEAD - NC/AT. No matamoros signs or raccoon's eyes. EYES - PERRL with EOMI bilaterally. Sclera anicteric. No hyphema. EARS - No deformities of external structures noted on gross examination bilaterally. No hemotympanum. NOSE - Midline and without cyanosis. No epistaxis or purulent drainage noted. MOUTH/OROPHARYNX - Without perioral cyanosis. No blood in the posterior pharynx. NECK - Neck with FROM. No C-spine tenderness. LUNGS - Chest wall symmetric without accessory muscle use, intercostals retractions, or central cyanosis. Normal vesicular breath sounds CTA B/L. No wheezes, rales, or rhonchi appreciated. CARDIAC - RRR with S1/S2. No murmur, rubs, or gallops appreciated. ABDOMEN - Abdominal contour normal without pulsations or visible masses. No tenderness, palpable masses, hepatosplenomegaly, or ascites noted. MUSCULOSKELETAL: There is tenderness noted to palpation overlying the inferior thoracic, more pronounced in the lumbar spine as well as the paraspinous musculature of the lumbar spine and minimally overlying the sacrum and coccyx region. No bony deformity. No abnormal step-off. EXTREMITIES - No clubbing or peripheral cyanosis. No pretibial edema present. + 5/5 strength noted in UE/LE bilaterally. NEUROLOGIC - Cranial nerves II through XII grossly intact. Sensory intact to light touch throughout. PSYCH - A&O, and cooperates fully with examiner. Pt is very pleasant and interacts well with examiner. Medical Decision & Procedures ER Provider Diagnostic Interpretation: L-SPINE MIN 4 VIEWS ROUTINE CLINICAL HISTORY: Fall, low back pain COMPARISON: Lumbar spine radiographs January 02, 2015. FINDINGS: Alignment of the lumbar spine is anatomic. Vertebral body heights are maintained. There is no fracture or suspicious lesion. There is mild to moderate disc space narrowing at L5-S1. Sacroiliac joints are intact. IMPRESSION: 1. No acute lumbar spine fracture or subluxation. 2. Mild to moderate disc space narrowing at L5-S1. Electronically signed by: Nikolay Laureano M.D. 09/23/2017 12:30 PM Dictated Date/Time: 09/23/2017 12:29 PM PELVIS 1 OR 2 VIEW ROUTINE CLINICAL HISTORY: Fall, low back pain COMPARISON STUDY: No previous studies for comparison. FINDINGS: Sacroiliac joints and symphysis pubis are intact. There is no acute fracture within the pelvis or hips. There is minimal joint space narrowing and mild osteophytosis of both hips. IMPRESSION: No acute fracture within the pelvis or hips. Electronically signed by: Nikolay Laureano M.D. 09/23/2017 1:09 PM Dictated Date/Time: 09/23/2017 1:08 PM Medical Decision Patient was seen and evaluated as above in room D7. Review was performed of nursing notes and vital signs. After obtaining a thorough history and physical examination the above work up was performed. She presents today with low back pain. This is status post fall. She is nontoxic on exam, is able to ambulate and has reproducible tenderness in the lumbar spine and sacral region. X-rays were obtained. Results as above. No fracture or dislocation noted. I do not believe that obtaining CT or MRI at this time will yield any benefit. She was informed that if pain persists she is to return for further evaluation. She is to follow with the family doctor. She declined pain medication here noting that she was driving but will be given a short prescription for [place] at home. No red flags in the [place] drug monitoring system. I did have to preauthorize this medication working with the patient's insurance. The patient was educated upon management, had questions answered prior to discharge, and was discharged home in good condition. In the evaluation and treatment of this patient the following differential diagnoses were entertained: Lumbar fracture, dislocation, subluxation, strain, sprain, among others. Impression Primary Impression: Fall Additional Impression: Low back pain Departure Information Dispostion Home / Self-Care Condition GOOD Prescriptions Hydrocodone/Acetaminophen 5MG/325MG ([place] 5MG/325MG) Tab 1-2 TABLET PO Q6 Y for Pain, #15 TAB For Initial Treatment Prov: Jani Willis PA-C 09/23/17 Referrals No Doctor, Assigned (PCP) Patient Instructions [facility] Additional Instructions You have been treated in the Emergency Department for Back Pain. You have been prescribed [place] to be used for pain control. This is a narcotic medication. You cannot drive or consume alcohol while on this medicine. This medicine should only be used for pain that cannot be controlled with over-the- counter pain medicines. Please not take this with Tylenol. For pain control, you can use the following [id number] medicines (if >12 yo): - Regular strength (325mg/tab) Tylenol (acetaminophen) 2 tabs every 4-6 hours as needed. Do not exceed 12 tablets in a 24 hour period. Avoid taking more than 3 grams (3000 mg) of Tylenol per day. This includes any other sources of acetaminophen you may take on a regular basis. Please not take this with the howsimple. - Regular strength (200 mg/tab) Advil (ibuprofen) 1-2 tabs every 4-6 hours as needed. Do not exceed a dose of 3200 mg per day. If this is an acute injury, ice can be applied to the area of pain for the first 3 days to help decrease pain and inflammation. After the first 3 days, a heating pad can be used over the area for continued soothing relief. You should schedule a follow-up appointment in 2-3 days with your Primary Care Provider for further evaluation and treatment of your back pain. Return to the Emergency Department if your current symptoms worsen despite treatment course outlined above, or if you develop any of the following symptoms : intractable pain despite aforementioned treatment course, loss of control of your bowel or bladder, numbness or tingling in your groin, or development of a fever. Problem Qualifiers
--- NOTE | 2017-09-23 12:31 | DIAGNOSTIC IMAGING REPORT ---
L-SPINE MIN 4 VIEWS ROUTINE CLINICAL HISTORY: Fall, low back pain COMPARISON: Lumbar spine radiographs January 02, 2015. FINDINGS: Alignment of the lumbar spine is anatomic. Vertebral body heights are maintained. There is no fracture or suspicious lesion. There is mild to moderate disc space narrowing at L5-S1. Sacroiliac joints are intact. IMPRESSION: 1. No acute lumbar spine fracture or subluxation. 2. Mild to moderate disc space narrowing at L5-S1. Electronically signed by: Nikolay Laureano M.D. 09/23/2017 12:30 PM Dictated Date/Time: 09/23/2017 12:29 PM
--- NOTE | 2017-09-23 13:11 | DIAGNOSTIC IMAGING REPORT ---
PELVIS 1 OR 2 VIEW ROUTINE CLINICAL HISTORY: Fall, low back pain COMPARISON STUDY: No previous studies for comparison. FINDINGS: Sacroiliac joints and symphysis pubis are intact. There is no acute fracture within the pelvis or hips. There is minimal joint space narrowing and mild osteophytosis of both hips. IMPRESSION: No acute fracture within the pelvis or hips. Electronically signed by: Nikolay Laureano M.D. 09/23/2017 1:09 PM Dictated Date/Time: 09/23/2017 1:08 PM
[2017-09-23] MEDS ORDERED: HYDR-5688 PO (13:19)
[2017-09-23 14:00] VITALS: BP 124/99; PULSE 78; O2SAT 99
== END 2017-09-23 14:05 | disposition home or self-care (01) ==
LOC: C.EDB 11:47 → C.EDD 14:05
DX: S39.92XA Unspecified injury of lower back, initial encounter (principal); M54.5 Low back pain; W01.0XXA Fall on same level from slipping, tripping and stumbling without subsequent striking against object, initial encounter; Y92.89 Other specified places as the place of occurrence of the external cause; F17.210 Nicotine dependence, cigarettes, uncomplicated; J45.909 Unspecified asthma, uncomplicated; D57.3 Sickle-cell trait; Z90.49 Acquired absence of other specified parts of digestive tract